=== PATIENT | female | born 1970 | race Caucasian/White ===

== ENCOUNTER 2024-09-22 12:11 | Day surgery (SDC) | payer BC ==
[2024-09-20 16:18] LABS: BASOPHILS % (AUTO) 0.2 % (0-1); EOSINOPHILS # (AUTO) 0.1 X10'3 (0-0.9); EOSINOPHILS % (AUTO) 1.2 % (0-6); LYMPHOCYTES # (AUTO) 1.8 X10'3 (1.1-4.8); LYMPHOCYTES % (AUTO) 22.7 % (21-51); MEAN CORPUSCULAR HEMOGLOBIN 30.6 PG (27.0-31.0); MEAN CORPUSCULAR HGB CONC 34.1 g/dL (33.0-36.5); MEAN CORPUSCULAR VOLUME 89.8 FL (78-98); MEAN PLATELET VOLUME 7.9 FL (7.4-10.4); MONOCYTES # (AUTO) 0.5 X10'3 (0-0.9); MONOCYTES % (AUTO) 6.5 % (2-12); NEUTROPHILS # (AUTO) 5.4 X10'3 (1.8-7.7); NEUTROPHILS % (AUTO) 69.4 % (42-75); PRE OP HEMATOCRIT 36.2 % (35.0-45.0); PRE OP HEMOGLOBIN 12.3 g/dL (12.0-16.0); PRE OP PLATELET COUNT 235 X10'3 (140-440); PRE OP WHITE BLOOD COUNT 7.8 10'3 (4.8-10.8); RED BLOOD COUNT 4.02 X10'6 (4.20-5.60); RED CELL DISTRIBUTION WIDTH 13.3 % (11.5-14.5)
[2024-09-20 16:38] LABS: ALBUMIN 3.7 G/DL (3.4-5.0); ALBUMIN/GLOBULIN RATIO 1.1 (1.1-1.5); ALKALINE PHOSPHATASE 57 IU/L (46-116); BLOOD UREA NITROGEN 16 MG/DL (7-18); BUN/CREATININE RATIO 16.7 (10.0-20.0); CALCIUM 8.5 MG/DL (8.5-10.1); CHLORIDE 104 MMOL/L (99-107); CREATININE 0.96 MG/DL (0.40-0.90); PRE OP ALT 23 U/L (30-65); PRE OP ANION GAP 6 (8-16); PRE OP AST 19 U/L (10-37); PRE OP BILIRUB, TOTAL 0.2 MG/DL (0.0-1.0); PRE OP GLUCOSE 97 MG/DL (70-104); PRE OP POTASSIUM 3.8 MMOL/L (3.4-5.1); PRE OP SODIUM 138 MMOL/L (135-145); TOTAL CARBON DIOXIDE 28.5 MMOL/L (24-32); eGFR 60 ML/MIN
[~2024-09-22] VITALS: Ht 180.3 cm; Wt 138.3 kg
[2024-09-22] VITALS (11 sets, daily range): BP systolic 129–146; BP diastolic 67–87; PULSE 57–82; RESP 12–17; TEMP 97.9; O2SAT 10–100
[2024-09-22] MEDS: Cefazolin 3 GM/100ML NS IVPB 100 ML IV ONE (05:30)
[~2024-09-22 12:11] MED LIST: ACET-890 PO; AMLO-513 PO; BUPIVAcaine 2.5mg/ml inj 50ml vial (contains preservative) ONE; BUPIVAcaine HCl 0.25%/EPInephrine 1:200,000 inj. 10 ML VIAL ONE; DIPH-423 PO; ESTR0.5T28 PO; FIBER PO; IBUP-24 PO; LIDOcaine 1% (10mg/ml)w/preservative inj. 20ml MDV ONE; NAPR220T67 PO; PROG100C11 PO; TUMS PO; VITAMINS PO
[2024-09-22] MEDS ORDERED: LIDOcaine 1% (10mg/ml)w/preservative inj. 20ml MDV ONE (12:33)
[2024-09-22] MEDS ORDERED: BUPIVAcaine 2.5mg/ml inj 50ml vial (contains preservative) ONE (12:34)
[2024-09-22] MEDS ORDERED: ringers solution, lacted 1,000 ML IV SCH (12:55)
[2024-09-22] MEDS ORDERED: ondansetron/PF 4mg/2ml inj IV PRN (12:55)
[2024-09-22] MEDS ORDERED: meperidine/PF 25mg/ml syringe IV PRN ×2 (12:55)
[2024-09-22] MEDS ORDERED: morphine 2 MG/ML inj. syringe IV PRN (12:55)
[2024-09-22] MEDS ORDERED: proCHLORperazine 10 MG/2 ml inj IV PRN (12:55)
[2024-09-22] MEDS ORDERED: morphine 4 MG/ML inj SYRINge IV PRN (12:55)
[2024-09-22] MEDS: famotidine 20mg tablet PO ONE (13:03)
[2024-09-22] MEDS: ringers solution, lacted 1,000 ML IV SCH (13:04)
[2024-09-22] MEDS ORDERED: midazolam 1 mg/ML 2ml injection ONE (13:42)
[2024-09-22] MEDS ORDERED: fentaNYL/PF 50MCG/1 ML 2ML syringe ONE (13:42)
[2024-09-22] MEDS ORDERED: sevoflurane 250ml liquid IH ONE (13:53)
[2024-09-22] MEDS ORDERED: propofol inj 20 ML IV ONE (14:26)
[2024-09-22] MEDS ORDERED: dexamethasone sod phosphate 4mg/ml inj. ONE (14:26)
[2024-09-22] MEDS ORDERED: ondansetron/PF 4mg/2ml inj ONE (14:27)
[2024-09-22] MEDS: meperidine/PF 25mg/ml syringe IV PRN (14:50)
== END 2024-09-22 16:18 | disposition home or self-care (01) ==
LOC: PAS 12:11
PROVIDERS: ATTEND Surgery
DX: N61.1 Abscess of the breast and nipple (principal); I10 Essential (primary) hypertension; E66.9 Obesity, unspecified; K21.9 Gastro-esophageal reflux disease without esophagitis; J45.909 Unspecified asthma, uncomplicated; I25.2 Old myocardial infarction; M19.90 Unspecified osteoarthritis, unspecified site; Z79.2 Long term (current) use of antibiotics; Z79.891 Long term (current) use of opiate analgesic; Z79.899 Other long term (current) drug therapy; Z98.890 Other specified postprocedural states; Z68.41 Body mass index [BMI] 40.0-44.9, adult
CPT/HCPCS: 19020; 36415; 80053; 82948; 85025; 87070; 87075; 87077; 87186; 93005; J0690; J1100; J2175; J2250; J2405; J2704; J3010; J3490; J7030; J7120; Z7506; Z7512; A4215; A4618; A6449; A7000